=== PATIENT | male | born 1975 | race Caucasian/White ===

== ENCOUNTER 2019-04-18 15:10 | Observation (INO) | payer OTHER ==
[~2019-04-18] VITALS: Ht 177.8 cm; Wt 95.7 kg
--- NOTE | 2019-04-18 16:10 | REP ---
INDICATION: CVA PROCEDURE: CT head without contrast COMPARISON STUDIES: No priors FINDINGS: No acute bleed or acute large vessel territorial infarct. Ventricles, cisterns and sulci within normal limits. No mass effect or midline shift. No abnormal fluid collections. CONCLUSION: No acute findings. No evidence of infarct. Electronically Signed by Paul Li MD 04/18/2019 04:02 P
[2019-04-18 16:15] LABS: BASO % 0.4 % (0.0-1.0); EOS # 0.2 10^3/uL (0.0-0.5); EOS % 2.3 % (0.0-3.0); HEMATOCRIT 43.5 % (42.0-52.0); LYMPH # 2.8 10^3/uL (1.5-5.0); LYMPH % 31.5 % (24.0-44.0); MEAN CORPUSCULAR HEMOGLOBIN 30.6 pg (27.0-33.0); MEAN CORPUSCULAR HGB CONC 34.5 g/dl (32.0-36.5); MEAN CORPUSCULAR VOLUME 88.8 fl (80.0-96.0); MONO # 0.6 10^3/uL (0.0-0.8); MONO % 6.1 % (0.0-5.0); NEUTROPHILS # 5.3 10^3/uL (1.5-8.5); NEUTROPHILS % 59.5 % (36.0-66.0); PLATELET COUNT, AUTOMATED 322 10^3/uL (150-450)
[2019-04-18 16:26] LABS: INR 1.07; PROTHROMBIN TIME 13.6 SECONDS (11.8-14.0)
[2019-04-18 16:27] LABS: PARTIAL THROMBOPLASTIN TIME 30.1 SECONDS (25.0-38.4)
[2019-04-18 17:07] LABS: CK-MB VALUE MASS 3.1 NG/ML (<3.6); CPK CREATINE PHOSPHOKINASE 151 U/L (39-308); MB/CK RELATIVE INDEX 2.05 (< OR =4); TROPONIN I < 0.02 NG/ML (< 0.10)
--- NOTE | 2019-04-18 18:04 | REP ---
CHEST: Single view. There is no evidence of acute infiltrate. No pleural effusion is seen. The heart is normal in size. The mediastinal silhouette is unremarkable. The visualized osseous structures are intact. IMPRESSION: No acute pulmonary disease. Electronically Signed by Karl Downey MD 04/18/2019 06:09 P
--- NOTE | 2019-04-18 18:35 | REPVR ---
PROCEDURE INFORMATION: Exam: MR Head Without Contrast Exam date and time: 04/18/2019 4:03 PM Age: 44 years old Clinical indication: Weakness, facial; Additional info: Right facial droop sparing forehead, RO CVA TECHNIQUE: Imaging protocol: MR of the head without contrast. COMPARISON: CT Head without contrast 04/18/2019 3:47 PM FINDINGS: Brain: There is no acute cortical infarction, intracranial hemorrhage or mass. There are no prior microhemorrhages. There are no significant white matter lesions. Brain volume and ventricular size are proper for age. Ventricles: Normal. No ventriculomegaly. Bones/joints: Unremarkable. Soft tissues: Unremarkable. Sinuses: There is a probable mucus retention cyst in the floor the left maxillary antrum with remainder of the paranasal sinuses appearing clear. Mastoid air cells: Middle ear cavities and mastoid air cells are clear. Orbits: Unremarkable. IMPRESSION: Although there is no significant restricted diffusion to suggest acute infarction there is slight increased intensity in the left insular cortex in comparison to the right as well as a tiny focus in the anterolateral thalamus on the left series 304 image 1 frame 14 without corresponding abnormality on the FLAIR sequence could indicate ischemia therefore there could be consideration for CT perfusion imaging with CTA. Electronically signed by: Luma Carrion On 04/18/2019 18:35:23 PM
[2019-04-18] MEDS ORDERED: ISOVUE-370 76% 100ML VIAL (Q9967) As Ordered ONE (18:58)
[2019-04-18] MEDS ORDERED: NS 1,000 ML IV ONE (19:00)
--- NOTE | 2019-04-18 19:35 | REPVR ---
PROCEDURE INFORMATION: Exam: CT Angiography Head With Contrast Exam date and time: 04/18/2019 7:09 PM Age: 44 years old Clinical indication: Weakness; Additional info: CVA - nursing interventions must not delay CT TECHNIQUE: Imaging protocol: Computed tomography angiography of the head with intravenous contrast. 3D rendering: MIP and/or 3D reconstructed images were created by the technologist. Radiation optimization: All CT scans at this facility use at least one of these dose optimization techniques: automated exposure control; mA and/or kV adjustment per patient size (includes targeted exams where dose is matched to clinical indication); or iterative reconstruction. Contrast material: ISOVUE 370; Contrast volume: 100 ml; Contrast route: IV; COMPARISON: CT Head without contrast 04/18/2019 3:47 PM FINDINGS: Right internal carotid artery: Unremarkable. Intracranial segment is patent with no significant stenosis. No aneurysm. Right anterior cerebral artery: Unremarkable. No occlusion or significant stenosis. No aneurysm. Right middle cerebral artery: Unremarkable. No occlusion or significant stenosis. No aneurysm. Right posterior cerebral artery: Unremarkable. No occlusion or significant stenosis. No aneurysm. Right vertebral artery: Unremarkable. No occlusion or significant stenosis. No aneurysm. Left internal carotid artery: Unremarkable. Intracranial segment is patent with no significant stenosis. No aneurysm. Left anterior cerebral artery: Unremarkable. No occlusion or significant stenosis. No aneurysm. Left middle cerebral artery: Unremarkable. No occlusion or significant stenosis. No aneurysm. Left posterior cerebral artery: Unremarkable. No occlusion or significant stenosis. No aneurysm. Left vertebral artery: Unremarkable. No occlusion or significant stenosis. No aneurysm. Basilar artery: Unremarkable. No occlusion or significant stenosis. No aneurysm. IMPRESSION: No proximal acute arterial filling defects are identified. Electronically signed by: Luma Carrion On 04/18/2019 19:35:07 PM
--- NOTE | 2019-04-18 19:40 | REPVR ---
PROCEDURE INFORMATION: Exam: CT Angiography Neck With Contrast Exam date and time: 04/18/2019 7:09 PM Age: 44 years old Clinical indication: Weakness; Additional info: CVA - nursing interventions must not delay CT TECHNIQUE: Imaging protocol: Computed tomography angiography of the neck with intravenous contrast. 3D rendering: MIP and/or 3D reconstructed images were created by the technologist. Radiation optimization: All CT scans at this facility use at least one of these dose optimization techniques: automated exposure control; mA and/or kV adjustment per patient size (includes targeted exams where dose is matched to clinical indication); or iterative reconstruction. Contrast material: ISOVUE 370; Contrast volume: 100 ml; Contrast route: IV; COMPARISON: No relevant prior studies available. FINDINGS: VASCULATURE: Right common carotid artery: Unremarkable. No stenosis. No dissection or occlusion. Right internal carotid artery: Unremarkable extracranial segment. No stenosis. No dissection or occlusion. Right external carotid artery: Unremarkable. No occlusion or stenosis of the origin. Right vertebral artery: Unremarkable. No stenosis. No dissection or occlusion. Left common carotid artery: Unremarkable. No stenosis. No dissection or occlusion. Left internal carotid artery: Unremarkable extracranial segment. No stenosis. No dissection or occlusion. Left external carotid artery: Unremarkable. No occlusion or stenosis of the origin. Left vertebral artery: Unremarkable. No stenosis. No dissection or occlusion. NECK: Bones/joints: No acute fracture. Soft tissues: No significant soft tissue swelling. IMPRESSION: No acute findings. COMMENT: Reference per NASCET criteria for degree of stenosis: Mild: less than 50% stenosis. Moderate: 50-69% stenosis. Severe: 70-94% stenosis. Near occlusion: 95-99% stenosis. Electronically signed by: Luma Carrion On 04/18/2019 19:39:57 PM
--- NOTE | 2019-04-18 20:02 | ECGEPIP ---
[facility] - ED Test Date: 2019-04-18 Pat Name: JANENE LAWSON Department: Room: - Gender: Male [employer]er: christiane : 1975 Requested By: Siri Ross Order Number: [id number] Reading MD: Siri Ross Measurements Intervals [place] Rate: 85 P: 19 MI: 155 QRS: 57 QRSD: 108 T: -15 QT: 367 QTc: 437 Interpretive Statements SINUS RHYTHM PROBABLE LATERAL MYOCARDIAL INFARCTION, PROBABLY OLD PROBABLE INFERIOR MYOCARDIAL INFARCTION, OF INDETERMINATE AGE WITH POSTERIOR EX EXTENSION NONSPECIFIC ST T WAVE CHANGES NO PRIOR ECG FOR COMPARISON Electronically Signed on 04-18-2019 20:02:03 EST by Siri Ross
--- NOTE | 2019-04-18 21:44 | HPEPDOC ---
[facility] Medical History & Physical Date of Admission Apr 18, 2019 Date of Service: Apr 18, 2019 History and Physical CHIEF COMPLAINT: Right-sided facial weakness HISTORY OF PRESENT ILLNESS: This is a 44-year-old male with history of Sommers's palsy diagnosed in 2016 presenting to the ER for right-sided facial weakness which was noticed at 8:30 this morning. Patient is accompanied by his who supplemented with the history. He states when he woke up this morning when he was unable to grasp his cigarette on his right side of his lips. He states that when he looked in the mirror he noticed right-sided lip drooping and thought it was secondary to [place] palsy. He admits to having [place] palsy in 2016 where he experienced similar symptoms such as right-sided numbness, vertigo and dizziness. He states he is unsure of what caused this [place] palsy back then but he just predicted that this is similar symptoms. He notices symptoms do not resolve in the afternoon like previously therefore he came to the ER for further evaluation. Otherwise patient denies weight loss, hair loss, headache, visual changes, chest pain, shortness of breath, cough, nausea, vomiting, diarrhea, abdominal pain, muscle aches, worsening arthritis, change in mood PAST MEDICAL HISTORY: 1. History of Sommers's palsy diagnosed in 2016 HOME MEDICATIONS: Please see below. ALLERGIES: Please see below PAST SURGICAL HISTORY: NONE SOCIAL HISTORY: Lives with: and Dania, Employment: Power line/Labor Worker, Tobacco use: Half a pack to a pack daily for the last 30 years remote peeping history in the past. ETOH: Binge drinker while socially drink alcohol choice is vodka unable to quantify Illicit drug use: Remote marijuana abuse, CODE STATUS: Full code FAMILY HISTORY: Reviewed and noncontributory. Denies any family history of clotting disorders, premature strokes at a young age or cancer REVIEW OF SYSTEMS: 10 systems reviewed and negative other than HPI PHYSICAL EXAMINATION: VITAL SIGNS: See below GENERAL: Pleasant 44-year-old male sitting up in bed awake alert oriented speaking in complete sentences no acute distress] HEENT: Atraumatic normocephalic pupils are equal round and reactive Moist mucous membranes no JVD CARDIOVASCULAR: S1 S2 regular no additional heart sounds appreciated. RESPIRATORY: Clear to auscultation bilaterally. ABDOMINAL: Bowel sounds present abdomen soft and nontender EXTREMITIES: No clubbing cyanosis or edema NEUROLOGICAL: Spontaneously moves all 4 extremities. Unable to keep eye closed and the right, right lip drooping with diminished nasolabial crease on the right, no tongue deviation unable to cough up left cheek. Slight horizontal nystagmus on the left PSYCHOLOGICAL: Appropriate LABORATORY DATA: See below. MICROBIOLOGY: Please see below. IMAGIN04/18/[address] - No acute findings no evidence of infarct. Chest x-ray- no acute pulmonary disease Brain MRI - Although there is no significant restricted diffusion to suggest acute infarction there is slight increased intensity in the left insular cortex in comparison to the right as well as a tiny focus in the anterolateral thalamus on the left series 304 image 1 frame 14 without corresponding abnormality on the FLAIR sequence could indicate ischemia therefore there could be consideration for CT perfusion imaging with CTA. Neck CTA - No acute findings. CT angiogram of the head - No proximal acute arterial filling defects are identified. ASSESSMENT & PLAN: This is a 44-year-old male with no medical history presenting to the ER for right-sided facial weakness which was noticed at 8:30 this morning. PROBLEMS: 1. Right-sided facial weakness possibly [place] palsy versus TIA unlikely stroke. Onset time early this morning, greater than 12 hours, therefore not a candidate for TPA. MRI of the brain today stated possible acute infarct but CT angio the brain was negative for any acute findings. Will admit and monitor for 24-48 hours. Monitor on remote telemetry for 24-48 hours. Start aspirin 81 mg daily as well as Lipitor 40 mg daily. Will obtain cholesterol level in the morning. Lyme titers pending. Repeat MRI of the brain without contrast in the a.m. Neurology, Dr. Kang consulted and will evaluate the pressures in the morning. Will obtain urine drug screen as well 2. Tobacco abuse. Educated the patient that he needs to quit tobacco for it increases his risk for strokes and heart attacks cancers. Patient states that he understand has no desire to quit. Smoking sensation information provided. Does not want nicotine patches. DVT PROPHYLAXIS: Lovenox DISPOSITION: Obs 24-48 hours, MRI of the brain in the morning without contrast, neurology consult I personally saw and examined patient. I have reviewed and agree with residents findings including all diagnostic interpretations, and treatment plans as written. I was present for the alvares portions of any procedures performed and the inclusive time noted in any critical care times treatment. Time spent 35 minutes, greater than 50% of the time spent on education. Vital Signs Vital Signs Date Time Temp Pulse Resp B/P (MAP) Pulse Ox O2 Delivery O2 Flow Rate FiO2 04/18/19 19:21 18 136/88 (104) 97 Room Air 04/18/19 19:00 80 04/18/19 15:10 96.6 Laboratory Data Labs 24H Laboratory Tests 2 04/18/19 16:06: Immature Granulocyte % (Auto) 0.2, Neutrophils (%) (Auto) 59.5, Lymphocytes (%) (Auto) 31.5, Monocytes (%) (Auto) 6.1H, Eosinophils (%) (Auto) 2.3, Basophils (%) (Auto) 0.4, Neutrophils # (Auto) 5.3, Lymphocytes # (Auto) 2.8, Monocytes # (Auto) 0.6, Eosinophils # (Auto) 0.2, Basophils # (Auto) 0.0, Nucleated Red Blood Cells % (auto) 0.0, Prothrombin Time 13.6, Prothromb Time International Ratio 1.07, Activated Partial Thromboplast Time 30.1, Total Creatine Kinase 151, Creatine Kinase MB 3.1, Creatine Kinase MB Relative Index 2.05, Troponin I < 0.02 04/18/19 16:10: Bedside Prothrombin Time INR 1.1, Prothrombin Time (MISC) 13.7 04/18/19 16:20: POC Glucose (Misc Panel) 115H, POC Sodium (Misc Panel) 141, POC Potassium (Misc Panel) 3.4L, POC Chloride (Misc Panel) 103, POC Total CO2 (Misc Panel) 26.0, POC Blood Urea Nitrogen (Misc Panel 12, POC Ionized Calcium (Misc Panel) 4.9, POC Creatinine (Misc Panel) 0.7, POC Hematocrit (Misc Panel) 41.0 CBC/BMP Laboratory Tests 04/18/19 16:06 Home Medications No Active Prescriptions or Reported Meds Allergies Coded Allergies: No Known Allergies (Unverified , 04/18/19) URIEL DEVRIES DO Apr 18, 2019 21:44 ANA ESQUIVEL MD Apr 19, 2019 06:47
[2019-04-18 22:13] VITALS: BP 136/79
[2019-04-19 06:00] VITALS: BP 131/82
[2019-04-19 07:35] LABS: HEMATOCRIT 45.3 % (42.0-52.0); HEMOGLOBIN 15.5 g/dl (13.5-17.5); MEAN CORPUSCULAR HEMOGLOBIN 30.6 pg (27.0-33.0); MEAN CORPUSCULAR HGB CONC 34.2 g/dl (32.0-36.5); MEAN CORPUSCULAR VOLUME 89.3 fl (80.0-96.0); PLATELET COUNT, AUTOMATED 323 10^3/uL (150-450); RED BLOOD COUNT 5.07 10^6/uL (4.30-6.10); WHITE BLOOD COUNT 11.9 10^3/uL (4.0-10.0)
[2019-04-19 08:13] LABS: BLOOD UREA NITROGEN 8 MG/DL (7-18); CALCIUM LEVEL 8.9 MG/DL (8.5-10.1); CARBON DIOXIDE LEVEL 27 MEQ/L (21-32); CHLORIDE LEVEL 107 MEQ/L (98-107); CHOLESTEROL LEVEL 103 MG/DL (<200); CHOLESTEROL RISK RATIO 3.029 (<5); CREATININE FOR GFR 0.74 MG/DL (0.70-1.30); GLOMERULAR FILTRATION RATE > 60.0 (>60); GLUCOSE, FASTING 91 MG/DL (70-100); HDL CHOLESTEROL 34 MG/DL (>40); LDL CHOLESTEROL 54 MG/DL (<100); MAGNESIUM LEVEL 2.1 MG/DL (1.8-2.4); NON-HDL-C 69 MG/DL; POTASSIUM SERUM 3.5 MEQ/L (3.5-5.1); SODIUM LEVEL 139 MEQ/L (136-145); TRIGLYCERIDES LEVEL 77 MG/DL (<150)
[2019-04-19] MEDS ORDERED: ATORVASTATIN 20 MG TAB PO SCH (09:00)
[2019-04-19] MEDS ORDERED: ASPIRIN 81 MG ENTERIC TAB PO SCH (09:00)
[2019-04-19] MEDS ORDERED: ENOXAPARIN 40 MG/0.4 ML SYRINGE (J1650) SC SCH (09:00)
[2019-04-19] MEDS ORDERED: predniSONE 20 MG TAB PO SCH (10:45)
[2019-04-19] MEDS: valACYclovir HCL 500 MG TAB PO SCH ×2 (12:27→16:34)
[2019-04-19 14:00] VITALS: BP 144/82
--- NOTE | 2019-04-19 16:31 | IPNPDOC ---
Text Note Date of Service The patient was seen on 04/19/19. NOTE SUBJECTIVE: Continues to have right sided facial weakness, also loss of taste on the right side on the mouth. He also complains of a stabbing discomfort in the right ear. He says that he notices his right eyes are looking bigger than the left more widely open. PHYSICAL EXAMINATION: VITAL SIGNS: See below GENERAL: Pleasant 44-year-old male sitting up in bed awake alert oriented speaking in complete sentences no acute distress] HEENT: Atraumatic normocephalic pupils are equal round and reactive Moist mucous membranes , Palpebral fissures are unequal. Neck: no JVD CARDIOVASCULAR: S1 S2 regular no additional heart sounds appreciated. RESPIRATORY: Clear to auscultation bilaterally. ABDOMINAL: Bowel sounds present abdomen soft and non tender EXTREMITIES: No clubbing cyanosis or edema NEUROLOGICAL: Spontaneously moves all 4 extremities. Unable to keep eye closed tightly on the right, right angle of mouth drooping with diminished nasolabial crease on the right, no tongue deviation unable to cough up left cheek. Decreased creases on frowning on the right forehead , however able to raise both eye brows equally, unequal palpebral fissures with right greater than left PSYCHOLOGICAL: Appropriate LABORATORY DATA: Reviewed See below. IMAGIN04/18/[address] - No acute findings no evidence of infarct. Chest x-ray- no acute pulmonary disease Brain MRI - Although there is no significant restricted diffusion to suggest acute infarction there is slight increased intensity in the left insular cortex in comparison to the right as well as a tiny focus in the anterolateral thalamus on the left series 304 image 1 frame 14 without corresponding abnormality on the FLAIR sequence could indicate ischemia therefore there could be consideration for CT perfusion imaging with CTA. Neck CTA - No acute findings. CT angiogram of the head - No proximal acute arterial filling defects are identified. ASSESSMENT & PLAN: This is a 44-year-old male with history of Sommers's palsy in 2016 asociated to vertigo adn dizziness which lasted 6 months then with complete recovery presented to the ER for right-sided facial weakness which was noticed at 8:30 am on 04/18/19. He states when he woke up this morning when he was unable to grasp his cigarette on his right side of his lips. He states that when he looked in the mirror he noticed right-sided lip drooping and thought it was secondary to [place] palsy. He admits to having [place]son palsy in 2016 where he experienced similar symptoms such as right-sided numbness, vertigo and dizziness. He states he is unsure of what caused this [place]son palsy back then but he just predicted that this is similar symptoms. He noticed symptoms did not resolve in the afternoon like previously therefore he came to the ER for further evaluation. 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 to compare to the abnormal MRI from yesterday to rule out other causes of facial weakness. Tobacco abuse. Educated the patient that he needs to quit tobacco for it increases his risk for strokes and heart attacks cancers. Patient states that he understand has no desire to quit. Smoking sensation information provided. Does not want nicotine patches. VS,Fishbone, I+O VS, Fishbone, I+O Laboratory Tests 04/19/19 07:05 Vital Signs Date Time Temp Pulse Resp B/P (MAP) Pulse Ox O2 Delivery O2 Flow Rate FiO2 04/19/19 14:00 96.9 84 20 144/82 (102) 95 Room Air I&O- Last 24 Hours up to 6 AM0 04/19/19 06:00 Intake Total 1000 ml Balance 1000 ml VALENTE HARDIN MD Apr 19, 2019 16:31
[2019-04-19] MEDS ORDERED: VALA500T5 PO (17:54)
[2019-04-19] MEDS ORDERED: PRED20TA PO (17:54)
[2019-04-19] MEDS ORDERED: ARTIDRO2 OP (18:00)
[2019-04-19] MEDS ORDERED: AKWA1OIN OP (18:00)
--- NOTE | 2019-04-20 13:33 | DS.PDOC ---
Discharge Summary General Date of Admission Apr 18, 2019 at 15:11 Date of Discharge 04/19/19 Discharge Summary PROCEDURES PERFORMED DURING STAY: [None]. DISCHARGE DIAGNOSES: Right sided Sommers's Palsy Tobacco use disorder. COMPLICATIONS/CHIEF COMPLAINT: TIA. HISTORY OF PRESENT ILLNESS: See history and physical HOSPITAL COURSE: This is a 44-year-old male with history of Sommers's palsy in 2016 associated to vertigo and dizziness which lasted 6 months then with complete recovery presented to the ER for right-sided facial weakness which was noticed at 8:30 am on 04/18/19. He states when he woke up in the morning he was unable to grasp his cigarette on his right side of his lips. He states that when he looked in the mirror he noticed right-sided lip drooping and thought it was secondary to [place] palsy. He admits to having [place] palsy in 2016 where he experienced similar symptoms such as right-sided numbness, vertigo and dizziness. He states he is unsure of what caused this [place] palsy back then but he just predicted that this is similar symptoms. He noticed symptoms did not resolve in the afternoon like previously therefore he came to the ER for further evaluation. Initially in the ED it was thought that he may be having a stroke or TIA so had full work up with CT head, MRI brain, CTA of head, CTA of neck all was negative. The MRI was read by radiologist at night as having an abnormality. On further evaluation by hospitalist it was diagnosed as Right sided [place] palsy. MRI was later reviewed by neurologist and was felt to be normal. 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 prednisone and Valcyclovir for 1 week. artificial tears , eye patch and eye ointment for night. Seen by Neurology. follow up with ophthalmology as outpatient. Tobacco abuse. Educated the patient that he needs to quit tobacco for it increases his risk for strokes and heart attacks cancers. Patient states that he understand has no desire to quit. Smoking sensation information provided. Does not want nicotine patches. DISCHARGE MEDICATIONS: Please see below. ALLERGIES: Please see below. PHYSICAL EXAMINATION ON DISCHARGE: VITAL SIGNS: Please see below. GENERAL: Pleasant 44-year-old male sitting up in bed awake alert oriented speaking in complete sentences no acute distress] HEENT: Atraumatic normocephalic pupils are equal round and reactive Moist mucous membranes , Palpebral fissures are unequal. Neck: no JVD CARDIOVASCULAR: S1 S2 regular no additional heart sounds appreciated. RESPIRATORY: Clear to auscultation bilaterally. ABDOMINAL: Bowel sounds present abdomen soft and non tender EXTREMITIES: No clubbing cyanosis or edema NEUROLOGICAL: Spontaneously moves all 4 extremities. Unable to keep eye closed tightly on the right, right angle of mouth drooping with diminished nasolabial crease on the right, no tongue deviation unable to cough up left cheek. Decreased creases on frowning on the right forehead , however able to raise both eye brows equally, unequal palpebral fissures with right greater than left PSYCHOLOGICAL: Appropriate LABORATORY DATA: Please see below. IMAGIN04/18/[address] - No acute findings no evidence of infarct. Chest x-ray- no acute pulmonary disease Brain MRI - Although there is no significant restricted diffusion to suggest acute infarction there is slight increased intensity in the left insular cortex in comparison to the right as well as a tiny focus in the anterolateral thalamus on the left series 304 image 1 frame 14 without corresponding abnormality on the FLAIR sequence could indicate ischemia therefore there could be consideration for CT perfusion imaging with CTA. Neck CTA - No acute findings. CT angiogram of the head - No proximal acute arterial filling defects are identified. ACTIVITY: [As tolerated]. DIET: As tolerated DISPOSITION: 01 Home, Self-Care. DISCHARGE INSTRUCTIONS: Follow up PMD in 1 week Referral to ophthalmology in 1 to 2 weeks Follow up Neurology Dr Moran in 4 to 6 weeks DISCHARGE CONDITION: [Stable]. TIME SPENT ON DISCHARGE: 35 minutes. Vital Signs/I&Os Vital Signs Date Time Temp Pulse Resp B/P (MAP) Pulse Ox O2 Delivery O2 Flow Rate FiO2 04/19/19 14:00 96.9 84 20 144/82 (102) 95 Room Air I&O- Last 24 Hours up to 6 AM 04/20/19 06:00 Intake Total 1200 ml Balance 1200 ml Laboratory Data CBC/BMP Item Value Date Time White Blood Count 11.9 10^3/uL H 04/19/19 07 Red Blood Count 5.07 10^6/uL 04/19/19 07 Hemoglobin 15.5 g/dl 04/19/19 07 Hematocrit 45.3 % 04/19/19 07 Mean Corpuscular Volume 89.3 fl 04/19/19 07 Mean Corpuscular Hemoglobin 30.6 pg 04/19/19 0705 Mean Corpuscular Hemoglobin Concent 34.2 g/dl 04/19/19 0705 Red Cell Distribution Width 11.9 % 04/19/19 07 Platelet Count 323 10^3/uL 04/19/19 0705 Sodium Level 139 MEQ/L 04/19/19 0705 Potassium Level 3.5 MEQ/L 04/19/19 0705 Chloride Level 107 MEQ/L 04/19/19 0705 Carbon Dioxide Level 27 MEQ/L 04/19/19 0705 Anion Gap 5 MEQ/L L 04/19/19 0705 Blood Urea Nitrogen 8 MG/DL 04/19/19 0705 Creatinine 0.74 MG/DL 04/19/19 0705 Glomerular Filtration Rate > 60.0 04/19/19 0705 Fasting Glucose 91 MG/DL 04/19/19 0705 Calcium Level 8.9 MG/DL 04/19/19 0705 Magnesium Level 2.1 MG/DL 04/19/19 07 Triglycerides Level 77 MG/DL 04/19/19 0705 Total Cholesterol 103 MG/DL 04/19/19 0705 LDL Cholesterol 54 MG/DL 04/19/19 0705 Non-HDL Cholesterol (LDL + VLDL) 69 MG/DL 04/19/19 07 Total HDL Cholesterol 34 MG/DL L 04/19/19 07 Cholesterol/HDL Ratio 3.029 04/19/19 07 Discharge Medications Scheduled Mineral Oil/Petrolatum,White (Artificial Tears Eye Ointment) 3.5 Gm Oint...g., 1 APLCT OP QPM apply to right eye Polyvinyl Alcohol (Artificial Tears) 15 Ml Drops, 1 DROP OP Q2H Prednisone (Prednisone) 20 Mg Tablet, 60 MG PO DAILY 3 tabs daily Valacyclovir HCl (Valacyclovir) 500 Mg Tablet, 1,000 MG PO TID Allergies Coded Allergies: No Known Allergies (Unverified , 04/18/19) VALENTE HARDIN MD Apr 20, 2019 13:33
--- NOTE | 2019-04-20 17:46 | CR ---
DATE OF CONSULTATION: 04/20/2019 CONSULTATION REPORT FOR: Dr. Veronica Altamirano REASON FOR CONSULTATION: Right-sided facial weakness, rule out stroke. 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 The patient states he woke up with symptoms of weakness of his face. When he was seen in the emergency department, he did not present with lower motor neuron facial weakness and could still contract his forehead muscles. The patient did have a head CT which was negative. An MRI of the brain was read as possible acute ischemia. CT angiogram and CT perfusion were recommended. CT perfusion was not possible at [facility]. CT angiogram did not reveal any large vessel occlusion. The patient was placed on aspirin 81 mg daily and statin therapy as well. During the hospitalization, the patient has also mentioned that he has had taste changes to the anterior two-thirds of the right tongue along with pain in his right ear. The patient likely, at this point, has Sommers's palsy with sparing of the forehead. The patient's MRI was independently reviewed by myself. It appears to be normal without any evidence of ischemia. The initial report may have an over-read. The patient, at the present time, will continue with saline drops generously every hour. He will go ahead and wear an eye patch to sleep. He has been started on prednisone and will be on an antiviral medication as well, either acyclovir or valacyclovir. He has been recommended to drink plenty of fluids to avoid crystal nephropathy from acyclovir if that is what is given to him. PAST MEDICAL HISTORY: History of Sommers's palsy of the right face. PAST SURGICAL HISTORY: None. FAMILY HISTORY: Noncontributory. ALLERGIES: None. HOME MEDICATIONS: None at this time. PHYSICAL EXAMINATION: Blood pressure 144/82, pulse rate 84, respiratory rate is 20, temperature is 96.9 degrees Fahrenheit, oxygenation is 95% on room air. The patient is awake, alert, oriented to person, place and time. Speech, language, comprehension and repetition are intact. Pupils are 3 mm round, reactive to light. The patient does have facial weakness of the right face involving the part of his face. The patient has reasonable symmetric strength of bilateral frontalis muscle. Sensation of V1, V2 and V3 is intact to light touch and is symmetric. Hearing is subjectively equal to finger rub. The patient denies any hyperacusis at this time. Tongue is midline. Palate elevates symmetrically. There is no pronator drift. Strength is 5/5 including bilateral deltoids, biceps, triceps, handgrip, iliopsoas, quadriceps, anterior tibialis. Deep tendon reflexes are 2+ throughout. Sensory is intact to light touch, temperature, vibration throughout. Coordination: Motion normal [id number], [id number] without any signs of gross ataxia or dysmetria. Romberg testing is normal. Gait is normal. ASSESSMENT: Acute Sommers's palsy of the right face. PLAN: 1. Agree with treatment with prednisone for the next 7-10 days along with antiviral therapy. Use eye drops generously every hour, normal saline would be fine. Recommend complete ophthalmologic evaluation after discharge. Recommend wearing eye patch at night. 2. History obtained from both the patient and the patient's .
[2019-04-21 00:08] LABS: Lyme Disease IgG/IgM Antibodie <0.91 ISR (0.00-0.90); Lyme Disease IgM Ab Quantitati <0.80 index (0.00-0.79)
== END 2019-04-19 18:48 | disposition home or self-care (01) ==
LOC: M ED 15:10 → M ED INP 15:11 → ENRESERVTM 21:43 → ENRESERVDT 21:43 → M MSPAV 22:13
PROVIDERS: ADMIT Family Medicine; ATTEND Internal Medicine Nephrology
DX: G51.0 Bell's palsy (principal); F17.218 Nicotine dependence, cigarettes, with other nicotine-induced disorders
CPT/HCPCS: 36415; 70450; 70496; 70498; 70551; 71045; 80047; 80048; 80061; 82550; 82553; 83735; 84484; 85025; 85027; 85610; 85730; 86617; 86850; 86900; 86901; 93005; 93041; 94760; 96360; 99285; Q9967